=== PATIENT | female | born 1955 | race Caucasian/White ===

== ENCOUNTER 2021-11-27 14:37 | Emergency (ER) | payer MEDICARE, BC ==
[2021-11-27 14:59] VITALS: BP 220/151; PULSE 112
[2021-11-27] MEDS ORDERED: Sodium Chloride 0.9% 10 ML Syringe FLUSH PRN (16:05)
[2021-11-27] MEDS ORDERED: Labetalol 100 MG/20 ML MDV IVPUSH ONE (16:06)
== END 2021-11-27 19:15 | disposition home or self-care (01) ==
LOC: JD.ED 14:37
DX: I10 Essential (primary) hypertension (principal); I48.91 Unspecified atrial fibrillation; Z86.16 Personal history of COVID-19; Z90.49 Acquired absence of other specified parts of digestive tract; Z87.891 Personal history of nicotine dependence; Z79.899 Other long term (current) drug therapy; Z88.0 Allergy status to penicillin; Z91.048 Other nonmedicinal substance allergy status
CPT/HCPCS: 36415; 80053; 85025; 85610; 96374; 99283; J3490; 99284

== ENCOUNTER 2021-11-27 21:25 | Emergency (ER) | payer MEDICARE, BC ==
[2021-11-27] MEDS ORDERED: Sodium Chloride 0.9% 10 ML Syringe FLUSH PRN (22:00)
[2021-11-27] MEDS ORDERED: Sodium Chloride 0.9% 1,000 ML IV SCH (22:00)
[2021-11-27] MEDS ORDERED: Diltiazem 50 MG/10 ML SDV IVPUSH ONE (22:02)
[2021-11-27] MEDS ORDERED: Diltiazem 100 MG in Sodium Chloride 0.9% 100 ML IV SCH (22:15)
[2021-11-28] MEDS ORDERED: Diltiazem 120 MG Cap.CD PO ONE (06:24)
[2021-11-28 07:27] VITALS: BP 119/89
[2021-11-28 07:37] VITALS: PULSE 76
== END 2021-11-28 07:45 | disposition home or self-care (01) ==
LOC: JD.ED 21:25
DX: I48.91 Unspecified atrial fibrillation (principal); I10 Essential (primary) hypertension; E78.00 Pure hypercholesterolemia, unspecified; Z88.0 Allergy status to penicillin; Z91.048 Other nonmedicinal substance allergy status; Z79.01 Long term (current) use of anticoagulants; Z79.899 Other long term (current) drug therapy; Z86.16 Personal history of COVID-19; Z87.891 Personal history of nicotine dependence
CPT/HCPCS: 36415; 80053; 83735; 84443; 84484; 85025; 85610; 93005; 96374; 99283; 99284; A9270; J3490; J7030; 93010